=== PATIENT | male | born 1955 | race Caucasian/White ===

== ENCOUNTER → 2019-11-05 | Outpatient (CLI) | payer BC, OTHER ==
[~2019-11-05] MED LIST: ASPIR 8181 MG PO; DIGOXIN125 MCG PO; DIOVAN 80 MG TA80 M1 PO; DIPHENHIST50 MG PO; FLOMAX0.4 MG PO; LASIX 40 MG TAB40 M2 PO; LIPITOR 20 MG T20 M1 PO; MACROBID 100 M100 M1 PO; POTASSIUM20 PO; PROAIR HFA8.5 GM; SYMBICORT160 MCG/4. INH; TOPROL XL50 MG PO
== END ==
LOC: RAD 15:23
DX: M48.02 Spinal stenosis, cervical region (principal); M25.78 Osteophyte, vertebrae; M81.0 Age-related osteoporosis without current pathological fracture; M54.6 Pain in thoracic spine

== ENCOUNTER → 2020-12-22 | Outpatient (CLI) | payer BC, OTHER | LOC: SJCVCIMAG 11-10 08:29 | PROVIDERS: ATTEND Internal Medicine | DX: R94.31 Abnormal electrocardiogram [ECG] [EKG] (principal); I48.0 Paroxysmal atrial fibrillation; I49.1 Atrial premature depolarization; I34.0 Nonrheumatic mitral (valve) insufficiency; I10 Essential (primary) hypertension; E78.5 Hyperlipidemia, unspecified; J43.9 Emphysema, unspecified; Z79.899 Other long term (current) drug therapy; Z88.1 Allergy status to other antibiotic agents; Z98.890 Other specified postprocedural states; Z87.891 Personal history of nicotine dependence ==

== ENCOUNTER 2021-02-24 21:15 | Inpatient (IN) | payer BC, OTHER ==
[~2021-02-24] VITALS: Ht 167.6 cm; Wt 54.4 kg
[~2021-02-24 21:15] MED LIST changes: -PROAIR HFA8.5 GM; +PROAIR HFA8.5 GM INH
[2021-02-24 21:22] VITALS: BP 125/43
[2021-02-24 21:50] LABS: ABSOLUTE NEUTROPHILS 10.1 thou/uL (1.4-8.2); BASOPHILS 0.9 % (0.0-2.0); EOSINOPHILS 0.1 % (0.0-3.0); HEMATOCRIT 23.3 % (42.0-52.0); HEMOGLOBIN 7.5 gm/dL (14.0-18.0); LYMPHOCYTES 11.5 % (24.0-44.0); MCH 24.9 pg (26.0-34.0); MCHC 32.1 g/dL (28.0-37.0); MCV 77.8 fL (80.0-100.0); MONOCYTES 5.6 % (1.0-8.0); PLATELET COUNT 252 thou/uL (150-400); POLYS 81.9 % (36.0-66.0); RBC 2.99 mil/uL (4.50-6.00); RDW 18.2 % (10.5-14.5); WBC 12.4 thou/uL (4.0-11.0)
[2021-02-24] MEDS ORDERED: ELIQUIS5 MG PO (21:53)
[2021-02-24 22:00] LABS: ANION GAP 9 mmol/L (7-16); BUN 74 mg/dL (7-18); CALCIUM 8.4 mg/dL (8.5-10.1); CHLORIDE 106 mmol/L (98-107); CO2 25 mmol/L (21-32); CREATININE 1.2 mg/dL (0.7-1.3); GLUCOSE 143 mg/dL (74-106); POTASSIUM 4.7 mmol/L (3.5-5.1); SODIUM 140 mmol/L (136-145)
[2021-02-24 22:03] LABS: ALBUMIN 2.8 g/dL (3.4-5.0); DIRECT BILIRUBIN < 0.1 mg/dL (<0.1-0.2); LIPASE 125 U/L (73-393); SGOT 16 U/L (15-37); SGPT 23 U/L (16-63); TOTAL BILIRUBIN 0.3 mg/dL (0.2-1.0); TOTAL PROTEIN 5.5 g/dL (6.4-8.2)
[2021-02-24 22:51] LABS: APTT 23.2 Seconds (24.5-32.8); INR 1.16; PROTIME 12.6 Seconds (10.5-12.1)
[2021-02-24 23:05] VITALS: BP 125/43
[2021-02-24 23:42] VITALS: BP 111/47
[2021-02-24 23:57] VITALS: BP 114/51
[2021-02-25 00:23] LABS: URINE BILIRUBIN NEGATIVE (Negative); URINE BLOOD NEGATIVE (Negative); URINE CLARITY CLEAR; URINE COLOR YELLOW; URINE GLUCOSE-RANDOM* NEGATIVE (Negative); URINE KETONES NEGATIVE (Negative); URINE NITRITE-REFLEX NEGATIVE (Negative); URINE PROTEIN (DIPSTICK) NEGATIVE (Negative); URINE UROBILINOGEN 0.2 E.U./dl (0.2-1.0)
[2021-02-25 00:31] LABS: URINE LEUKOCYTES-REFLEX 1+ (Negative)
[2021-02-25] MEDS ORDERED: MULTAQ 400 MG400 MG PO (00:42)
[2021-02-25 00:51] LABS: BACTERIA-REFLEX 1-9 Few /HPF (None Seen); CRYSTALS None Seen /LPF (None Seen); HYALINE CASTS 0-3 Few /LPF (None Seen); MUCUS 0-3 Light strn/LPF (None Seen); SQUAMOUS 0-3 Few /LPF (0-3); URINE RBC 1-2 Rare /HPF (NONE SEEN); URINE WBC-REFLEX 6-15 Few /HPF (0-5)
--- NOTE | 2021-02-25 01:53 | NUR ---
Pt admitted at 2345 from ED with GIB.A/OX4,pleasant. Denies pain on assessment, some nausea but declined need for meds at this time. VSS.Pt has SOA, a non productive cough which he reports it's his baseline. Edema noted Left ankle 2+,Right ankle 1+,extremities elevated when in bed. Up ad kailyn,fall education reinforced and pt agrees to call for help as needed. Voiding adequately per urinal had Lasix prior to admission. Pt's NPO from midnight,IVF/Protonix infusing via right wrist w/o any problems.ST on telemetry. Will continue to monitor pt.
[2021-02-25 02:55] LABS: HEMOGLOBIN 6.9 gm/dL (14.0-18.0)
[2021-02-25 02:57] LABS: HEMATOCRIT 21.7 % (42.0-52.0); MCH 25.2 pg (26.0-34.0); MCV 78.6 fL (80.0-100.0); RBC 2.76 mil/uL (4.50-6.00); RDW 18.3 % (10.5-14.5); WBC 10.2 thou/uL (4.0-11.0)
[2021-02-25 02:58] LABS: CALCIUM 7.9 mg/dL (8.5-10.1); CREATININE 1.3 mg/dL (0.7-1.3)
[2021-02-25 04:43] VITALS: BP 103/67
[2021-02-25 07:08] VITALS: BP 104/55
[2021-02-25 09:51] VITALS: BP 126/77; BP 131/54
[2021-02-25 16:31] VITALS: BP 126/47
--- NOTE | 2021-02-25 16:49 | NUR ---
ASSUMED PATIENT CARE AT 0700, RECEIVED ONE UNIT RBC NO REACTION NOTED. HAD EGD DID NOT FUND ANY BLEEDING. WILL HAVE COLONOSCOPY TOMORROW. PATIENT BACK FROM EGD AT 1630. VSS, NO BLEEDING NOTED. WILL KEEP MONITOR.
[2021-02-25 19:20] VITALS: BP 106/56
[2021-02-26] VITALS (7 sets, daily range): BP systolic 95–113; BP diastolic 34–74
--- NOTE | 2021-02-26 04:36 | NUR ---
Pt. completed bowel prep and had multiple loose stools with the last one still not clear yet this am. C/O nausea , zofran given with relief. Tolerating room air well though he verbalized that he gets short of breath with exertion. A fib in the low 100's with activities then once he started to rest HR in the 90's. Kept NPO for colonoscopy today. IV fluids and protonix gtt. infusing.
[2021-02-26 05:15] LABS: HEMATOCRIT 20.9 % (42.0-52.0); HEMOGLOBIN 6.7 gm/dL (14.0-18.0)
[2021-02-26 05:24] LABS: MCH 26.7 pg (26.0-34.0); MCHC 32.3 g/dL (28.0-37.0); MCV 82.9 fL (80.0-100.0); RBC 2.52 mil/uL (4.50-6.00); RDW 19.5 % (10.5-14.5); WBC 9.7 thou/uL (4.0-11.0)
[2021-02-26 05:30] LABS: CALCIUM 8.1 mg/dL (8.5-10.1); CREATININE 1.4 mg/dL (0.7-1.3); POTASSIUM 4.6 mmol/L (3.5-5.1)
--- NOTE | 2021-02-26 06:38 | NUR ---
Dr. Adkins notified of hgb 6.7 this am and bowel prep ot clear yet. Order received to transfuse one unit [employer] and to give tap water enema x1.
--- NOTE | 2021-02-26 11:49 | NUR ---
INITIAL ASSESSMENT: SW reviewed chart and spoke with nursing and attending physician. Pt was admitted from home due to GI bleed. Pt had EGD yesterday and pt is currently off the unit having a colonoscopy. Pt's hemoglobin was 6.7 this morning. Pt received a blood transfusion. Per chart, pt is alert/orientated x 4. Pt lives at home with his . Pt was independent with ADLs prior to admission. Pt works at [employer]. Pt's PCP is Dr. Quincy Martinez. Plan is for pt to discharge home when medically stable. SW is following to assist as needed with discharge planning.
--- NOTE | 2021-02-26 18:21 | NUR ---
ASSUMED PATIENT CARE AT 0700. PATIENT BACK TO ROOM FROM GI AT 1400. VSS. NO BLEEDING NOTED. TOLERATED ON DIET. PATIENT RECEIVED ONE UNIT RBC IN AM. NO REACTION NOTED. SLOWLY TOWARDS POC GOALS.
[2021-02-27 04:09] VITALS: BP 101/47
[2021-02-27 04:33] LABS: HEMATOCRIT 21.8 % (42.0-52.0); MCH 26.8 pg (26.0-34.0); MCHC 32.3 g/dL (28.0-37.0); RBC 2.62 mil/uL (4.50-6.00); RDW 18.2 % (10.5-14.5); WBC 5.1 thou/uL (4.0-11.0)
[2021-02-27 04:46] LABS: POTASSIUM 4.1 mmol/L (3.5-5.1)
--- NOTE | 2021-02-27 05:55 | NUR ---
Pt. slept better. C/O headache when he woke up , tylenol given with good relief. No bleeding noted. Verbalized shortness of breath with exertion.Up ad kailyn in room with steady gait.
[2021-02-27 07:02] VITALS: BP 104/42
--- NOTE | 2021-02-27 11:56 | NUR ---
SW reviewed chart and spoke with nursing and attending physician. Pt had colonoscopy yesterday. Hemoglobin is 7.0 today. Discharge home is anticipated for tomorrow if hemoglobin remains stable. No discharge needs identified at this time. TREVIN is following to assist as needed with discharge planning.
[2021-02-27 15:03] VITALS: BP 98/48
--- NOTE | 2021-02-27 15:51 | NUR ---
ASSUMED PATIENT CARE AT 0700. A/O X4. NO BM AND BLEEDING NOTED. DENIES ABD PAIN AND NO N/V. BP ON LOW SIDE. POOR APPETITE. SLOWLY TOWARDS POC GOALS.
--- NOTE | 2021-02-27 18:06 | PATH ---
[facility] [address] [place] [address] PATHOLOGY RPT PROCEDURE Name: GILDASHANTAL MILLER GIOVANI Room #: 349-I ADM IN M.R.#: [id number] Admission: 02/24/21 Date of : 55 Discharge: Report #: [id number] Path Case #: [id number] [facility] Accession Number: [id number] . 01 Material submitted: . esophagus - ESOPHAGEAL POLYP . 01 Clinical history: . GI BLEED . 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 - Negative for dysplasia or malignancy. - Squamous mucosa with mild esophagitis. . (IUV:mml; 02/27/2021) QLM 02/27/2021 1600 Local . 02 Electronically signed: . Lizet De La Rosa MD, Pathologist NPI- [id number] . 01 Gross description: . The specimen is received in formalin, labeled "Shantal Vo, esophageal polyp". Received is a segment of pale pearson tissue measuring 0.3 cm in maximum dimensions. The specimen is submitted entirely in cassette A1. (CAA; 02/26/2021) QAC/QAC 02/26/2021 1552 Local . 02 Pathologist provided ICD-10: K22.70, K20.90 . 02 CPT . 550632 Specimen Comment: A courtesy copy of this report has been sent to [phone] Specimen Comment: [phone], Specimen Comment: Report sent to ,DR LI / DR RANDOLPH Performed at: [address] [id number] MD Jhony Dixon MD Phone: [phone] Performed at: [address] [id number] [address] [address] PATHOLOGY RPT PROCEDURE Name: JASMYNE VOY GIOVANI Room #: 349-I ADM IN M.R.#: [id number] Admission: 02/24/21 Date of : 55 Discharge: Report #: [id number] Path Case #: [id number] MD Lizet De La Rosa MD Phone: [phone]
[2021-02-27 20:08] VITALS: BP 88/45
[2021-02-27 23:50] VITALS: BP 103/59
[2021-02-28 04:46] VITALS: BP 110/65
[2021-02-28 05:11] LABS: HEMOGLOBIN 7.1 gm/dL (14.0-18.0); MCH 26.9 pg (26.0-34.0); MCHC 32.4 g/dL (28.0-37.0); MCV 83.2 fL (80.0-100.0); RBC 2.65 mil/uL (4.50-6.00); RDW 18.5 % (10.5-14.5)
[2021-02-28 05:17] LABS: POTASSIUM 3.9 mmol/L (3.5-5.1)
--- NOTE | 2021-02-28 05:44 | NUR ---
denies stools over night. he has had discomfort in his neck and back through the night. tylenol has given him some relief. helped him position himself and apply a warm blaket to the back of his neck for comfort. encouraged him to elevate his feet. careplan reviewed.
[2021-02-28 07:19] VITALS: BP 116/55
[2021-02-28] MEDS ORDERED: METOPROLOL SUCC25 M1 PO (11:26)
[2021-02-28] MEDS ORDERED: PROTONIX40 M2 PO (11:27)
[2021-02-28 11:47] VITALS: BP 116/55
--- NOTE | 2021-02-28 14:04 | NUR ---
ASSUMED PATIENT CARE AT 0700. A/O X4. NO BLEEDING NOTED. SLOWLY TOWARDS POC GOALS. DC TO HOME NOW.
== END 2021-02-28 14:06 | disposition home or self-care (01) | DRG 378 ==
LOC: ER 21:15 → EROBS 22:31 → 3W 22:31
PROVIDERS: Hospitalist; Nurse Practitioner; ADMIT Hospitalist; ATTEND Hospitalist
PROC: 0DB58ZZ Excision of Esophagus, Via Natural or Artificial Opening Endoscopic (ICD-10-PCS; principal; 2021-02-25)
PROC: 30233N1 Transfusion of Nonautologous Red Blood Cells into Peripheral Vein, Percutaneous Approach (ICD-10-PCS; principal; 2021-02-25)
PROC: 0DJD8ZZ Inspection of Lower Intestinal Tract, Via Natural or Artificial Opening Endoscopic (ICD-10-PCS; 2021-02-26)
DX: K57.31 Diverticulosis of large intestine without perforation or abscess with bleeding (principal); D62 Acute posthemorrhagic anemia; I10 Essential (primary) hypertension; K92.0 Hematemesis; I48.91 Unspecified atrial fibrillation; E78.5 Hyperlipidemia, unspecified; I34.0 Nonrheumatic mitral (valve) insufficiency; Z20.822 Contact with and (suspected) exposure to COVID-19; K64.8 Other hemorrhoids; Z79.82 Long term (current) use of aspirin; Z87.442 Personal history of urinary calculi; Z88.1 Allergy status to other antibiotic agents; Z80.0 Family history of malignant neoplasm of digestive organs; Z79.899 Other long term (current) drug therapy
CPT/HCPCS: 10879; 62110; 62900; 70005